=== PATIENT | male | born 1975 | race Caucasian/White ===

== ENCOUNTER 2018-03-03 15:34 | Emergency (ER) | payer OTHER ==
[~2018-03-03] VITALS: Ht 177.8 cm; Wt 90.7 kg
[~2018-03-03 15:34] MED LIST: BUCALSEP SPRAY30 ML MM; CEFTIN250 MG PO
[2018-03-03] MEDS ORDERED: PERCOCET 10-321 EACH (15:45)
== END 2018-03-03 22:32 | disposition home or self-care (01) ==
LOC: ER 15:34
DX: K52.89 Other specified noninfective gastroenteritis and colitis (principal); R19.7 Diarrhea, unspecified

== ENCOUNTER 2018-03-06 14:50 | Emergency (ER) | payer OTHER ==
[~2018-03-06] VITALS: Ht 177.8 cm; Wt 89.4 kg
[~2018-03-06 14:50] MED LIST changes: +PERCOCET 10-321 EACH
[2018-03-06] MEDS ORDERED: ASPIRIN81 MG (15:25)
[2018-03-06] MEDS ORDERED: CLONAZEPAM1 MG (15:25)
[2018-03-06] MEDS ORDERED: PERCOCET 5-3251 EACH (15:25)
== END 2018-03-06 21:15 | disposition home or self-care (01) ==
LOC: ER 14:50
DX: K52.89 Other specified noninfective gastroenteritis and colitis (principal)